=== PATIENT | female | born 1975 | race Caucasian/White ===

== ENCOUNTER 2020-02-22 14:08 | Emergency (ER) | payer SELFPAY ==
[~2020-02-22] VITALS: Ht 157.5 cm; Wt 112.0 kg
[2020-02-22 14:17] VITALS: BP 144/84
--- NOTE | 2020-02-22 14:41 | NUR ---
Patient given discharge instructions and they have confirmed that they understand the instructions. Patient ambulatory with steady gait.
== END 2020-02-22 14:42 | disposition home or self-care (01) ==
LOC: ED 14:36
DX: B34.9 Viral infection, unspecified (principal); R05 Cough; Z20.828 Contact with and (suspected) exposure to other viral communicable diseases
CPT/HCPCS: 36415; 87635; 99283